=== PATIENT | male | born 1945 | race Caucasian/White ===

== ENCOUNTER → 2018-11-26 | Outpatient (CLI) | payer MEDICARE, OTHER ==
[~2018-11-26] MED LIST: ASPI-1181 PO; CHOL500050 PO; CYAN1TAB54 PO; LISI-613 PO; METH25VI17 SQ; METO-391 PO; PRAV80TA21 PO; PRED1TAB PO; VORA2.082 PO
== END | disposition home or self-care (01) ==
LOC: RAH 15:51
PROVIDERS: ATTEND Orthopaedic Surgery
DX: M75.102 Unspecified rotator cuff tear or rupture of left shoulder, not specified as traumatic (principal); M25.412 Effusion, left shoulder
CPT/HCPCS: 73221

== ENCOUNTER → 2019-05-20 | Outpatient (CLI) | payer MEDICARE, OTHER | END | disposition home or self-care (01) | LOC: SHCH 08:22 | PROVIDERS: ATTEND Internal Medicine Cardiovascular Disease | DX: I08.0 Rheumatic disorders of both mitral and aortic valves (principal); I11.9 Hypertensive heart disease without heart failure | CPT/HCPCS: 93306 ==

== ENCOUNTER → 2019-05-21 | Outpatient (CLI) | payer MEDICARE, OTHER | END | disposition home or self-care (01) | LOC: SHCH 08:22 | PROVIDERS: ATTEND Internal Medicine Cardiovascular Disease | DX: I65.23 Occlusion and stenosis of bilateral carotid arteries (principal) | CPT/HCPCS: 93880 ==

== ENCOUNTER → 2020-04-28 | Outpatient (CLI) | payer MEDICARE, OTHER | END | disposition home or self-care (01) | LOC: SHCH 07:36 | PROVIDERS: ATTEND Internal Medicine Cardiovascular Disease | DX: I73.89 Other specified peripheral vascular diseases (principal) ==

== ENCOUNTER → 2020-05-31 | Outpatient (CLI) | payer MEDICARE, OTHER ==
[~2020-05-31] MED LIST changes: -ASPI-1181 PO; +ASPI-1443 PO; +IOHEXOL 350 MG/ML 100ML INFUS..BTL IV ONE; +IOHEXOL-350 75 ML VIAL IV ONE
== END | disposition home or self-care (01) ==
LOC: RAH 09:43
PROVIDERS: ATTEND Internal Medicine Cardiovascular Disease
DX: I70.203 Unspecified atherosclerosis of native arteries of extremities, bilateral legs (principal); I71.4 Abdominal aortic aneurysm, without rupture; I70.0 Atherosclerosis of aorta; J98.11 Atelectasis; N28.1 Cyst of kidney, acquired; I10 Essential (primary) hypertension; I25.10 Atherosclerotic heart disease of native coronary artery without angina pectoris
CPT/HCPCS: 75635; Q9967 ×2

== ENCOUNTER → 2020-08-26 | Outpatient (CLI) | payer MEDICARE, OTHER ==
[~2020-08-26] MED LIST changes: -IOHEXOL 350 MG/ML 100ML INFUS..BTL IV ONE; -IOHEXOL-350 75 ML VIAL IV ONE
== END | disposition home or self-care (01) ==
LOC: SHCH 13:02
PROVIDERS: ATTEND Internal Medicine Cardiovascular Disease
DX: I35.0 Nonrheumatic aortic (valve) stenosis (principal)
CPT/HCPCS: 93306; 93356

== ENCOUNTER → 2020-11-28 | Outpatient (CLI) | payer MEDICARE, OTHER | END | disposition home or self-care (01) | LOC: OIH 13:43 | PROVIDERS: ATTEND Internal Medicine | DX: M19.041 Primary osteoarthritis, right hand (principal); M19.042 Primary osteoarthritis, left hand; M19.072 Primary osteoarthritis, left ankle and foot; M19.071 Primary osteoarthritis, right ankle and foot | CPT/HCPCS: 73630 ==

== ENCOUNTER → 2021-11-16 | Outpatient (CLI) | payer MEDICARE, OTHER ==
[~2021-11-16] MED LIST changes: -LISI-613 PO; +LISI20TA24 PO
== END | disposition home or self-care (01) ==
LOC: RAH 12:51
PROVIDERS: ATTEND Orthopaedic Surgery
DX: M47.26 Other spondylosis with radiculopathy, lumbar region (principal); M48.07 Spinal stenosis, lumbosacral region; M25.78 Osteophyte, vertebrae
CPT/HCPCS: 72148

== ENCOUNTER 2021-12-22 10:26 | Observation (INO) | payer MEDICARE, OTHER ==
[~2021-12-22] VITALS: Ht 170.2 cm; Wt 82.1 kg
[2021-12-22 10:54] LABS: BASOPHILS % (AUTO) 0.4 % (0.0-5.0); EOSINOPHILS % (AUTO) 1.3 % (0.0-8.0); HEMATOCRIT 40.3 % (42-54); LYMPHOCYTES % (AUTO) 20.5 % (21.0-51.0); MEAN CORPUSCULAR HEMOGLOBIN 29.7 pg (27.0-33.0); MEAN CORPUSCULAR HGB CONC 31.8 g/dL (32.0-36.0); MEAN CORPUSCULAR VOLUME 93.5 fL (79-99); MONOCYTES % (AUTO) 5.6 % (3.0-13.0); NEUTROPHILS % (AUTO) 72.1 % (40.0-77.0); PLATELET COUNT (AUTO) 195 K/uL (130-400); RED BLOOD CELL COUNT(AUTO) 4.31 MIL/uL (4.50-6.20); RED CELL DISTRIBUTION WIDTH 13.2 % (11.0-15.5)
[2021-12-22 11:04] LABS: CREATININE 1.1 mg/dL (0.5-1.5); POTASSIUM 3.6 mmol/L (3.5-5.1)
[2021-12-22 11:08] LABS: ALBUMIN 3.7 g/dL (3.5-5.0); BILIRUBIN,TOTAL 1.4 mg/dL (0.2-1.0); TOTAL PROTEIN, SERUM 7.3 g/dL (6.0-8.3)
[2021-12-22 11:09] LABS: INR 1.08 (0.85-1.15); PROTHROMBIN TIME 11.7 SEC (9.6-11.6)
[2021-12-22 11:10] LABS: PARTIAL THROMBOPLASTIN TIME 32.7 SEC (26.3-35.5)
[2021-12-22] MEDS ORDERED: 0.9% NACL 250ML 250 ML ONE (11:52)
[2021-12-22] MEDS ORDERED: KCL 20 MEQ ERTAB PO ONE (13:24)
[2021-12-22] MEDS ORDERED: MAGNESIUM 2GM PREMIX 50ML 50 ML IV SCH (13:30)
[2021-12-22] MEDS: CILOSTAZOL 100 MG TAB PO SCH (21:00)
[2021-12-22] MEDS: INSULIN HUMULIN R 100 UNIT/ML 3ML SQ SCH (21:00)
[2021-12-22] MEDS ORDERED: ACETAMINOPHEN 500 MG TABLET PO PRN (21:00)
[2021-12-23] MEDS: INSULIN HUMULIN R 100 UNIT/ML 3ML SQ SCH ×2 (07:30→11:30)
[2021-12-23] MEDS ORDERED: CETIRIZINE HCL 5 MG TABLET PO SCH (09:00)
[2021-12-23] MEDS: CILOSTAZOL 100 MG TAB PO SCH (09:12)
[2021-12-23] MEDS ORDERED: ACETAMINOPHEN 325 MG TAB PO PRN (09:30)
[2021-12-23 10:36] LABS: BASOPHILS % (AUTO) 0.5 % (0.0-5.0); EOSINOPHILS % (AUTO) 2.8 % (0.0-8.0); HEMATOCRIT 39.4 % (42-54); LYMPHOCYTES % (AUTO) 24.3 % (21.0-51.0); MEAN CORPUSCULAR HEMOGLOBIN 29.9 pg (27.0-33.0); MEAN CORPUSCULAR VOLUME 93.4 fL (79-99); MONOCYTES % (AUTO) 5.9 % (3.0-13.0); NEUTROPHILS % (AUTO) 66.3 % (40.0-77.0); PLATELET COUNT (AUTO) 192 K/uL (130-400); RED BLOOD CELL COUNT(AUTO) 4.22 MIL/uL (4.50-6.20); RED CELL DISTRIBUTION WIDTH 13.3 % (11.0-15.5); WHITE BLOOD COUNT (AUTO) 5.7 K/uL (4.8-10.8)
[2021-12-23] MEDS ORDERED: METOPROLOL TARTRATE 25 MG TAB PO SCH ×2 (11:00→21:00)
[2021-12-23 11:36] LABS: POTASSIUM 4.3 mmol/L (3.5-5.1); THYROID STIMULATING HORMONE 1.75 uIU/mL (0.36-3.74)
[2021-12-23 12:41] LABS: HEMOGLOBIN A1C 6.3 % (4.0-6.0)
[2021-12-23 13:24] VITALS: BP 117/44
[2021-12-23] MEDS ORDERED: PANT40TA55 PO (13:33)
== END 2021-12-23 14:42 | disposition home or self-care (01) ==
LOC: EDH 10:26 → INTOOBSV 13:32 → EDHIP 13:32
PROVIDERS: ADMIT Internal Medicine; ATTEND Internal Medicine
DX: R42 Dizziness and giddiness (principal); R55 Syncope and collapse; I48.20 Chronic atrial fibrillation, unspecified; E83.42 Hypomagnesemia; I25.10 Atherosclerotic heart disease of native coronary artery without angina pectoris; I35.0 Nonrheumatic aortic (valve) stenosis; I10 Essential (primary) hypertension; E78.5 Hyperlipidemia, unspecified; I73.9 Peripheral vascular disease, unspecified; E11.51 Type 2 diabetes mellitus with diabetic peripheral angiopathy without gangrene; M06.9 Rheumatoid arthritis, unspecified; K21.9 Gastro-esophageal reflux disease without esophagitis; G47.31 Primary central sleep apnea; I49.3 Ventricular premature depolarization; D68.59 Other primary thrombophilia; Z95.1 Presence of aortocoronary bypass graft; Z95.5 Presence of coronary angioplasty implant and graft; Z79.899 Other long term (current) drug therapy
CPT/HCPCS: 36415 ×2; 70450; 71045; 80048; 80053; 82550; 82948; 83036; 83735 ×2; 83880; 84145; 84443; 84484; 85025 ×2; 85610; 85651; 85730; 86140; 93005 ×2; 93880; 96365; 99285; G0378; J3475; J7050

== ENCOUNTER 2022-01-28 14:16 | Observation (INO) | payer MEDICARE, OTHER ==
[~2022-01-28] VITALS: Ht 182.9 cm; Wt 85.7 kg
[~2022-01-28 14:16] MED LIST changes: -ASPI-1443 PO; -LISI20TA24 PO; -METO-391 PO; +PANT40TA55 PO; -PRED1TAB PO; -VORA2.082 PO
[2022-01-28 14:53] LABS: BASOPHILS % (AUTO) 0.4 % (0.0-5.0); EOSINOPHILS % (AUTO) 1.6 % (0.0-8.0); HEMATOCRIT 39.9 % (42-54); LYMPHOCYTES % (AUTO) 15.2 % (21.0-51.0); MEAN CORPUSCULAR HEMOGLOBIN 30.4 pg (27.0-33.0); MEAN CORPUSCULAR HGB CONC 33.1 g/dL (32.0-36.0); MEAN CORPUSCULAR VOLUME 91.9 fL (79-99); MONOCYTES % (AUTO) 5.6 % (3.0-13.0); NEUTROPHILS % (AUTO) 76.9 % (40.0-77.0); PLATELET COUNT (AUTO) 199 K/uL (130-400); RED BLOOD CELL COUNT(AUTO) 4.34 MIL/uL (4.50-6.20); RED CELL DISTRIBUTION WIDTH 14.7 % (11.0-15.5)
[2022-01-28] MEDS ORDERED: ONDANSETRON 4MG INJ IVP ONE (15:00)
[2022-01-28] MEDS ORDERED: MORPHINE 4 MG SYG IV ONE (15:00)
[2022-01-28] MEDS ORDERED: 0.9% NACL 500ML IV.SOLN 500 ML IV ONE ×2 (15:00→15:07)
[2022-01-28 15:01] LABS: APPEARANCE,URINE Clear (CLEAR); BILIRUBIN,URINE Negative (NEGATIVE); COLOR,URINE Yellow (YELLOW); GLUCOSE, URINE (UA) Negative (NEGATIVE); KETONES,URINE Trace mg/dL (NEGATIVE); LEUKOCYTE ESTERASE ,URINE Negative (NEGATIVE); NITRATE,URINE Negative (NEGATIVE); OCCULT BLOOD,URINE Negative (NEGATIVE); PH,URINE 8.5 (5.0-8.0); PROTEIN,URINE Negative (NEGATIVE); UROBILINOGEN,URINE 0.2 mg/dL (0.2-1.0)
[2022-01-28] MEDS ORDERED: ONDANSETRON 4MG INJ ONE (15:06)
[2022-01-28] MEDS ORDERED: MORPHINE 4 MG SYG ONE (15:06)
[2022-01-28 15:07] LABS: ALBUMIN 3.8 g/dL (3.5-5.0); BILIRUBIN,TOTAL 1.6 mg/dL (0.2-1.0); TOTAL PROTEIN, SERUM 7.3 g/dL (6.0-8.3)
[2022-01-28] MEDS ORDERED: IOHEXOL-350 75 ML VIAL IV ONE (15:13)
[2022-01-28] MEDS ORDERED: BISACODYL 10 MG SUPP.RECT RC ONE (17:30)
[2022-01-28] MEDS ORDERED: LIDOCAINE HCL 2% VISCOUS 15 ML UDCUP ONE (18:26)
[2022-01-28] MEDS ORDERED: LORAZEPAM 2 MG/ML 1 ML VIAL ONE (19:26)
[2022-01-28] MEDS ORDERED: LORAZEPAM 2 MG/ML 1 ML VIAL IVP ONE (19:30)
[2022-01-28] MEDS ORDERED: ONDANSETRON 4MG INJ IV PRN (21:00)
[2022-01-28] MEDS ORDERED: 0.9%NACL 1000ML 1,000 ML IV SCH (21:00)
[2022-01-28] MEDS ORDERED: NITROGLYCERIN 0.4 MG SL TAB SL PRN (21:00)
[2022-01-28] MEDS ORDERED: ACETAMINOPHEN 325 MG TAB PO PRN ×2 (21:00)
[2022-01-28] MEDS: FAMOTIDINE 20MG TAB PO SCH (22:21)
[2022-01-28] MEDS: 0.9%NACL 1000ML 1,000 ML IV SCH (22:21)
[2022-01-28 22:50] VITALS: BP 164/65
[2022-01-29 04:24] VITALS: BP 133/63
[2022-01-29 05:03] LABS: HEMATOCRIT 35.3 % (42-54); MEAN CORPUSCULAR HEMOGLOBIN 29.9 pg (27.0-33.0); MEAN CORPUSCULAR HGB CONC 32.6 g/dL (32.0-36.0); MEAN CORPUSCULAR VOLUME 91.7 fL (79-99); RED BLOOD CELL COUNT(AUTO) 3.85 MIL/uL (4.50-6.20); RED CELL DISTRIBUTION WIDTH 15.1 % (11.0-15.5); WHITE BLOOD COUNT (AUTO) 7.3 K/uL (4.8-10.8)
[2022-01-29 05:31] LABS: BILIRUBIN,TOTAL 1.7 mg/dL (0.2-1.0); MAGNESIUM 2.1 mg/dL (1.80-2.40); POTASSIUM 3.9 mmol/L (3.5-5.1); TOTAL PROTEIN, SERUM 5.9 g/dL (6.0-8.3)
[2022-01-29] MEDS: 0.9%NACL 1000ML 1,000 ML IV SCH (05:51)
[2022-01-29 08:00] VITALS: BP 135/67
[2022-01-29] MEDS ORDERED: POLYETHYLENE GLYCOL 3350 17 GM POWD.PACK PO SCH (09:00)
[2022-01-29] MEDS ORDERED: MAGNESIUM HYDROXIDE 30 ML/UDCUP PO SCH (09:00)
[2022-01-29] MEDS ORDERED: ENOXAPARIN SODIUM 30 MG/0.3 ML SQ SCH (09:00)
[2022-01-29] MEDS: FAMOTIDINE 20MG TAB PO SCH (09:09)
[2022-01-29 11:51] VITALS: BP 114/52
[2022-02-08] MEDS ORDERED: CETI10TA57 PO (14:20)
[2022-02-08] MEDS ORDERED: CLOP75TA14 PO (14:20)
[2022-02-08] MEDS ORDERED: TURM500C9 PO (14:20)
[2022-02-08] MEDS ORDERED: TRAM50TA4 PO (14:20)
[2022-02-08] MEDS ORDERED: CYAN1TAB14 PO (14:20)
[2022-02-08] MEDS ORDERED: PRAV40TA3 PO (14:20)
[2022-02-08] MEDS ORDERED: METO25TA6 PO (14:20)
[2022-02-12] MEDS ORDERED: CLOP75TA14 PO (07:42)
[2022-02-13] MEDS ORDERED: ASPI-1197 PO (14:13)
== END 2022-01-29 12:15 | disposition home or self-care (01) ==
LOC: EDH 14:16 → EDHIP 20:30 → 3DH 22:26
PROVIDERS: ADMIT Hospitalist; ATTEND Hospitalist
DX: R00.1 Bradycardia, unspecified (principal); Z20.822 Contact with and (suspected) exposure to COVID-19; K56.41 Fecal impaction; R33.9 Retention of urine, unspecified; I10 Essential (primary) hypertension; E11.9 Type 2 diabetes mellitus without complications; I25.10 Atherosclerotic heart disease of native coronary artery without angina pectoris; R11.2 Nausea with vomiting, unspecified; I35.0 Nonrheumatic aortic (valve) stenosis; I48.91 Unspecified atrial fibrillation; K57.30 Diverticulosis of large intestine without perforation or abscess without bleeding; N40.1 Benign prostatic hyperplasia with lower urinary tract symptoms; K21.9 Gastro-esophageal reflux disease without esophagitis; E78.5 Hyperlipidemia, unspecified; G47.33 Obstructive sleep apnea (adult) (pediatric); R33.8 Other retention of urine; Z95.1 Presence of aortocoronary bypass graft; Z79.899 Other long term (current) drug therapy; Z98.890 Other specified postprocedural states
CPT/HCPCS: 36415 ×2; 74177; 80053 ×2; 81003; 83735; 84484; 85025; 85027; 87635; 93005 ×2; 96361 ×2; 96374; 96375; 99285; G0378 ×15; J2060; J2270; J2405; J7030 ×2; J7040; Q9967

== ENCOUNTER 2022-02-09 06:58 | Day surgery (SDC) | payer MEDICARE, OTHER ==
[2022-02-07 11:04] LABS: BASOPHILS % (AUTO) 0.7 % (0.0-5.0); EOSINOPHILS % (AUTO) 2.2 % (0.0-8.0); HEMATOCRIT 39.9 % (42-54); LYMPHOCYTES % (AUTO) 20.8 % (21.0-51.0); MEAN CORPUSCULAR HGB CONC 31.8 g/dL (32.0-36.0); MEAN CORPUSCULAR VOLUME 94.3 fL (79-99); MONOCYTES % (AUTO) 7.4 % (3.0-13.0); NEUTROPHILS % (AUTO) 68.6 % (40.0-77.0); PLATELET COUNT (AUTO) 191 K/uL (130-400); RED BLOOD CELL COUNT(AUTO) 4.23 MIL/uL (4.50-6.20); RED CELL DISTRIBUTION WIDTH 15.4 % (11.0-15.5); WHITE BLOOD COUNT (AUTO) 7.2 K/uL (4.8-10.8)
[2022-02-07 11:13] LABS: CREATININE 0.9 mg/dL (0.5-1.5); POTASSIUM 4.5 mmol/L (3.5-5.1)
[2022-02-07 11:37] LABS: INR 1.08 (0.85-1.15); PROTHROMBIN TIME 11.7 SEC (9.6-11.6)
[2022-02-07 11:38] LABS: PARTIAL THROMBOPLASTIN TIME 30.1 SEC (26.3-35.5)
[2022-02-08 13:47] VITALS: BP 129/69
[2022-02-09] VITALS (12 sets, daily range): BP systolic 116–139; BP diastolic 50–65
[~2022-02-09] VITALS: Ht 177.8 cm; Wt 83.1 kg
[~2022-02-09 06:58] MED LIST changes: +CETI10TA57 PO; -CHOL500050 PO; +CLOP75TA14 PO; +CYAN1TAB14 PO; -CYAN1TAB54 PO; -METH25VI17 SQ; +METO25TA6 PO; -PANT40TA55 PO; +PRAV40TA3 PO; -PRAV80TA21 PO; +TRAM50TA4 PO; +TURM500C9 PO
[2022-02-09] MEDS ORDERED: 0.9%NACL 1000ML 1,000 ML IV ONE (07:44)
[2022-02-09] MEDS ORDERED: HEPARIN 10,000 UNIT/10ML (1,000 UNIT/ML) VIAL ONE (08:28)
[2022-02-09] MEDS ORDERED: NITROGLYCERIN 50MG VIAL ONE (08:28)
[2022-02-09] MEDS ORDERED: MEPERIDINE-PF 25 MG/ML SYG ONE ×2 (08:29→11:58)
[2022-02-09] MEDS ORDERED: IOHEXOL-350 50ML VIAL IV ONE ×2 (08:29→11:54)
[2022-02-09] MEDS ORDERED: IOHEXOL 350 MG/ML 100ML INFUS..BTL IV ONE (08:29)
[2022-02-09] MEDS ORDERED: MIDAZOLAM HCL 1 MG/ML 2ML VIAL ONE ×2 (08:29→11:58)
[2022-02-09] MEDS ORDERED: LIDOCAINE HCL 1% MDV 50ML VIAL ONE (08:29)
[2022-02-09] MEDS ORDERED: SODIUM BICARB 50MEQ 50ML VIAL 50 ML ONE (08:52)
[2022-02-09] MEDS ORDERED: LIDOCAINE HCL 1% 20 ML VIAL ONE (08:54)
[2022-02-09] MEDS ORDERED: ATROPINE 1MG SYG IVP ONE (11:02)
[2022-02-09] MEDS ORDERED: 0.9%NACL 1000ML 1,000 ML IV SCH (12:30)
[2022-02-12] MEDS ORDERED: CLOP75TA14 PO (07:42)
[2022-02-13] MEDS ORDERED: ASPI-1197 PO (14:13)
== END 2022-02-09 19:05 | disposition home or self-care (01) ==
LOC: DAH 06:58
PROVIDERS: ATTEND Internal Medicine Cardiovascular Disease
DX: I35.0 Nonrheumatic aortic (valve) stenosis (principal); I25.10 Atherosclerotic heart disease of native coronary artery without angina pectoris; I65.23 Occlusion and stenosis of bilateral carotid arteries; I25.82 Chronic total occlusion of coronary artery; I48.0 Paroxysmal atrial fibrillation; E11.52 Type 2 diabetes mellitus with diabetic peripheral angiopathy with gangrene; I10 Essential (primary) hypertension; E78.5 Hyperlipidemia, unspecified; K21.9 Gastro-esophageal reflux disease without esophagitis; E11.9 Type 2 diabetes mellitus without complications; I25.2 Old myocardial infarction; I49.1 Atrial premature depolarization; G47.33 Obstructive sleep apnea (adult) (pediatric); Z79.84 Long term (current) use of oral hypoglycemic drugs; Z79.01 Long term (current) use of anticoagulants; Z98.890 Other specified postprocedural states; Z95.5 Presence of coronary angioplasty implant and graft; Z82.49 Family history of ischemic heart disease and other diseases of the circulatory system; Z87.891 Personal history of nicotine dependence
CPT/HCPCS: 36223; 36415; 71045; 80048; 85025; 85610; 85730; 93005; 93461; A4215; A4221; A4222; A4223 ×2; A4606; A4663; C1769 ×2; C1893; C1894 ×4; J0461; J1644 ×3; J2175 ×2; J2250 ×2; J3490 ×2; J7030; Q9965 ×2; Q9967 ×3; 96360; 96361; 99156; 99157